=== PATIENT | male | born 1985 | race Caucasian/White ===

== ENCOUNTER 2024-04-09 12:54 | Emergency (ER) | payer MEDICAID, SELFPAY ==
[2024-04-09 12:58] VITALS: BP 120/71; PULSE 77; TEMP 37.3; O2SAT 99; BMI 18.7
--- NOTE | 2024-04-09 13:10 | XR_ITS ---
WS: [id number] XR hand LT min 3V* [id number] REASON FOR EXAM: injury FINDINGS: No acute fracture identified. The joint spaces of the left hand are intact and well preserved. There is a small bony fragment immediately posterior to the mid dorsal wrist which could represent an avulsion fracture. Correlation with injury and pain to be made. No other significant bone or joint abnormality noted. XR/XR hand LT min 3V* [id number] IMPRESSION: No abnormality of the hand. Possible avulsion fracture From the dorsum of the carpal bones. Clinical evaluation to be made.
--- NOTE | 2024-04-09 13:11 | W.ED.EXTPRO ---
HPI - Extremity Problem General: Chief complaint: Extremity Injury, Upper Stated complaint: left wrist pain Time Seen by Provider: 04/09/24 13:08 History of Present Illness: 38-year-old male patient was playing softball last night when he tripped and fell catching himself with outstretched hands. Patient now has swelling and tenderness to the base of the fifth metacarpal of the left hand. 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 Patient has normal sensation and cap refill. Review of Systems General: Reports: 10 or more systems reviewed and unremarkable except in HPI and below Musc: Reports: extremity pain Physical Exam Const: COMMON NORMALS: alert HENMT: COMMON NORMALS: normocephalic HEAD & SCALP: normocephalic Neck/C-Spine: COMMON NORMALS: full ROM Chest: COMMONS NORMALS: normal inspection of the chest Resp: COMMON NORMALS: normal respiratory effort Cardio: COMMON NORMALS: regular rate RATE: regular rate GI: PALPATION: No Tenderness to palpation present (GI) Back/Pelvis: COMMON NORMALS: thoracic and lumbar spine normal to inspection Extremity: COMMON NORMALS: full ROM Neuro: SENSORIUM/ORIENTATION: Yes alert Skin: COMMON NORMALS: turgor normal GENERAL SKIN EXAM: turgor normal Course Vital Signs: Vital signs: Vital Signs Temperature 99.2 F 04/09/24 12:58 Pulse Rate 77 04/09/24 12:58 Blood Pressure 120/71 04/09/24 12:58 Pulse Oximetry 99 04/09/24 12:58 Oxygen Delivery Me thod Room Air 04/09/24 12:58 MDM - Extremity (Nontraumatic) Medical Decision Making 38-year-old male patient comes in for injury to the left hand. On exam patient has some tenderness and swelling to the dorsal aspect at the base of the fifth and fourth metacarpal of the hand. Differential diagnosis includes fracture, sprain, contusion. X-ray notes a possible avulsion fracture of the carpal bone from the dorsum. Patient does have swelling and tenderness in this area believe most likely is an avulsion fracture. Patient was put in a volar wrist splint. Recommend follow-up with orthopedics. Patient reports understanding agreed to plan. Lab Data Radiology Impressions Hand X-Ray 04/09/24 13:10 IMPRESSION: No abnormality of the hand. Possible avulsion fracture From the dorsum of the carpal bones. Clinical evaluation to be made. All radiology interpretation(s) finalized by discharge Discharge Plan Discharge Patient Disposition: Home Clinical Impression: Avulsion fracture of left wrist Condition: Stable Discharge Orders: Discharge ED (Routine); Ordered 04/09/24 Ordered By: Samuel Scott Referrals: Ehsan Juarez MD [Primary Care Provider] - Discharge Diet: Usual diet Discharge Activity: Increase activity as tolerated Patient Instructions: Wrist Fracture in Adults (ED) Activity Restrictions/Additional Instructions: Keep splint clean and dry. Activity limit. Follow-up with orthopedist for further evaluation and treatment. Return to ED for new concerns. Coding Level of Care Code ED Statement Request Clerk for Yumi Magallanes
[2024-04-09] MEDS: ketorolac 10 mg Tablet PO (14:33)
--- NOTE | 2024-04-10 09:56 | DCPLANNER ---
messaged ortho for er f/u
== END 2024-04-09 15:03 | disposition home or self-care (01) ==
PROVIDERS: Emergency Provider Nurse Practitioner Family; PCP Family Medicine
DX: S62.102A Fracture of unspecified carpal bone, left wrist, initial encounter for closed fracture (principal); W01.0XXA Fall on same level from slipping, tripping and stumbling without subsequent striking against object, initial encounter
CPT/HCPCS: 29125; 73130; 99283

== ENCOUNTER → 2024-04-17 11:17 | Outpatient (BNVA) | payer MEDICAID, SELFPAY | PROVIDERS: PCP Family Medicine; Referring Provider Clinical Nurse Specialist Adult Health; Visit Provider Physician Assistant | DX: S62.115A Nondisplaced fracture of triquetrum [cuneiform] bone, left wrist, initial encounter for closed fracture; W18.30XA Fall on same level, unspecified, initial encounter; Y93.67 Activity, basketball | CPT/HCPCS: 73110 ==

== ENCOUNTER → 2024-05-15 10:01 | Outpatient (BNVA) | payer MEDICAID, SELFPAY | PROVIDERS: PCP Family Medicine; Visit Provider Physician Assistant | DX: S62.115A Nondisplaced fracture of triquetrum [cuneiform] bone, left wrist, initial encounter for closed fracture (principal); X58.XXXA Exposure to other specified factors, initial encounter | CPT/HCPCS: 73110 ==